=== PATIENT | female | born 1980 | race Caucasian/White ===

== ENCOUNTER 2021-10-04 18:46 | Emergency (ER) | payer OTHER ==
[~2021-10-04] VITALS: Ht 152.4 cm; Wt 59.0 kg
[2021-10-04 18:48] VITALS: BP 140/68
--- NOTE | 2021-10-04 19:42 | RAD ---
CT LUMBAR SPINE WO History:Reason: Lower back pain / Spl. Instructions: / History: Technique: Noncontrast CT was performed of the lumbar spine. Multiplanar reconstructions were perform ed. Exposure: One or more of the following individualized dose reduction techniques were utilized for thi s examination: 1. Automated exposure control 2. Adjustment of the mA and/or kV according to patient size 3. Use of iterative reconstruction technique. Comparison: None Findings: Transitional lumbosacral anatomy. Lumbarization of S1. L5-S1 disc space identified on axial series 2 image 55. Normal vertebral body height and alignment. No acute fracture. 6 lumbar type vertebral bodi es. T12-L1: No canal or neuroforaminal narrowing. L1-L2: Minimal disc bulge. No canal or neuroforaminal narrowing. L2-L3: Minimal disc bulge. No canal or neuroforaminal narrowing. L3-L4: Minimal disc bulge. No canal or neuroforaminal narrowing. L4-L5: Small disc bulge. No canal or neuroforaminal narrowing. L5-S1: Small disc bulge. Mild facet arthropathy. No canal or neuroforaminal narrowing. S1-S2 no canal or neuroforaminal narrowing. Mild atheromatous plaque within the aorta advanced for age. Punctate nonobstructing left intrarenal c alculus. Impression: 1. Transitional lumbosacral anatomy. 2. Mild lumbar spondylosis. 3. Punctate nonobstructing left intrarenal calculus. Electronically signed by: Sudhir Leonard DO (10/04/2021 7:40 PM) [facility]
--- NOTE | 2021-10-04 19:43 | PHYS DOC ---
General Adult EDM: Chief Complaint: BACK PAIN OR INJURY HPI: HPI: Patient is a 41-year-old female who presents to the emergency department for bilateral low back pain that started 2 weeks ago that has been intermittent. Patient reports that she has been moving and it has worsened over the last couple of days. Patient rates pain 7 out of 10. It does radiate into her buttock. She has been taking ibuprofen and muscle relaxers at home without relief. She denies any loss of bowel or bladder, wounds, injury or saddle anesthesias. She does report a bulge on the left lower back. (NICKY VILLA APRN) Review of Systems: Review of Systems: GI: See HPI : See HPI Musculoskeletal: See HPI Neurologic: See HPI (NICKY VILLA APRN) Current Medications: Current Meds: Current Medications Medications (Trade) Dose Ordered Sig/Adis Start Time Stop Time Status Last Admin Dose Admin Ketorolac Tromethamine (Toradol Im) 60 mg 1X ONCE 10/04/21 19:30 10/04/21 19:31 UNV Orphenadrine Citrate (Norflex) 60 mg 1X ONCE 10/04/21 19:30 10/04/21 19:31 UNV (NICKY VILLA APRN) Physical Exam: PE: Constitutional: Well developed, well nourished, no acute distress, non-toxic appearance. [] HENT: Normocephalic, atraumatic, bilateral external ears normal, oropharynx moist, no oral exudates, nose normal. [] Eyes: PERRL EOMI, conjunctiva normal, no discharge. [] Neck: Normal range of motion, no bony spinal tenderness, supple, no stridor. [] Cardiovascular:Heart rate regular rhythm, no murmur [] Lungs & Thorax: Bilateral breath sounds clear to auscultation [] Abdomen: Bowel sounds normal, soft, no tenderness, no masses, no pulsatile masses. [] Skin: Warm, dry, no erythema, no rash. [] Back: No bony spinal tenderness, bilateral paraspinal lumbar tenderness with palpation, small area of swelling to the left lower back likely a muscle spasm Extremities: No tenderness, no cyanosis, no clubbing, ROM intact, no edema. [] Neurologic: Alert and oriented X 3, normal motor function, normal sensory function, no focal deficits noted. [] Psychologic: Affect normal, judgement normal, mood normal. [] (NICKY VILLA APRN) EKG: EKG: [] (NICKY VILLA APRN) Radiology/Procedures: Radiology/Procedures: []PROCEDURE: CT LUMBAR SPINE WO CONTRAST CT LUMBAR SPINE WO History:Reason: Lower back pain / Spl. Instructions: / History: Technique: Noncontrast CT was performed of the lumbar spine. Multiplanar reconstructions were performed. Exposure: One or more of the following individualized dose reduction techniques were utilized for this examination: 1. Automated exposure control 2. Adjustment of the mA and/or kV according to patient size 3. Use of iterative reconstruction technique. Comparison: None Findings: Transitional lumbosacral anatomy. Lumbarization of S1. L5-S1 disc space identified on axial series 2 image 55. Normal vertebral body height and alignment. No acute fracture. 6 lumbar type vertebral bodies. T12-L1: No canal or neuroforaminal narrowing. L1-L2: Minimal disc bulge. No canal or neuroforaminal narrowing. L2-L3: Minimal disc bulge. No canal or neuroforaminal narrowing. L3-L4: Minimal disc bulge. No canal or neuroforaminal narrowing. L4-L5: Small disc bulge. No canal or neuroforaminal narrowing. L5-S1: Small disc bulge. Mild facet arthropathy. No canal or neuroforaminal narrowing. S1-S2 no canal or neuroforaminal narrowing. Mild atheromatous plaque within the aorta advanced for age. Punctate nonobstructing left intrarenal calculus. Impression: 1. Transitional lumbosacral anatomy. 2. Mild lumbar spondylosis. 3. Punctate nonobstructing left intrarenal calculus. Electronically signed by: Sudhir Cunningham DO (10/04/2021 7:40 PM) [facility] DICTATED AND SIGNED BY: SUDHIR CUNNINGHAM DO DATE: 10/04/211932 CC: NICKY VILLA APRN; PCP,NO ~MTH0 0 (NICKY VILLA APRN) Heart Score: C/O Chest Pain: N/A Risk Factors: Risk Factors: DM, Current or recent (<one month) smoker, HTN, HLP, family history of CAD, obesity. Risk Scores: Score 0 - 3: 2.5% MACE over next 6 weeks - Discharge Home Score 4 - 6: 20.3% MACE over next 6 weeks - Admit for Clinical Observation Score 7 - 10: 72.7% MACE over next 6 weeks - Early Invasive Strategies (NICKY VILLA APRN) Course & Med Decision Making: Course & Med Decision Making Pertinent Labs and Imaging studies reviewed. (See chart for details) [] Patient seen for back pain that radiates into his buttock patient denies any injury but reports she has been moving recently. She denies any cauda equina symptoms. UA performed to rule out an infection. CT scan of lumbar spine showed no acute findings with some spondylosis. Patient treated with anti- inflammatory and muscle relaxer injection. Patient's urinalysis did not show any infection. Patient CT scan of her lumbar spine did show some spondylosis and a punctate intrarenal nonobstructing stone on the left side. Patient will be discharged home with pain medication. She is advised to increase her fluids. She will also be discharged home with muscle relaxers and steroid dose pack. It is also possible that patient's back pain is due to the kidney stone. The stone is nonobstructing. Patient symptoms with radiation to her buttocks after heavy lifting during moving does sound more like sciatic symptoms. Patient will be referred to urology at [facility]. I discussed with patient all findings and diagnostic testing as well as the need to follow-up with PCP for further evaluation and treatment or return to the ER if any new or worsening symptoms. Strict return precautions were also discussed at length. Patient voiced understanding and agreement with the plan. Patient is hemodynamically stable at the time of disposition. (NICKY VILLA APRN) Dragon Disclaimer: Drageduardo Disclaimer: This electronic medical record was generated, in whole or in part, using a voice recognition dictation system. (NICKY VILLA APRN) Departure Departure: Impression: Primary Impression: Sciatica Qualified Codes: M54.31 - Sciatica, right side; M54.32 - Sciatica, left side Additional Impression: Kidney stone Disposition: HOME / SELF CARE / HOMELESS Condition: GOOD Referrals: PCPEMANUEL (PCP) Patient Instructions: Kidney Stones, Sciatica Additional Instructions: You were seen in the emergency department today for back pain. Your symptoms of your back pain that radiate down your buttock after moving is very consistent with sciatica. Sciatica is treated with anti-inflammatory medications and muscle relaxers. Please take the steroid dose pack for inflammation. For severe pain you are being discharged home with hydrocodone and Tylenol in combination tablet. Do not take any additional Tylenol with this medication. This medication may cause sedation so do not take the need to be alert, driving a vehicle or with alcohol. You are also being discharged home with a muscle relaxer which may also cause sedation, caution taking both of these medications at the same time. I would reserve the hydrocodone and Tylenol for severe pain. The CT scan of your back showed some arthritic changes and you do have a left very small kidney stone that is not obstructing. This could also be a cause for your back pain. Please make sure that you increase your fluids at home. Please monitor your urine for any passage of the stone. Please follow-up with your primary care provider on Tuesday. If your pain continues, you may need to see a urologist as it is possible that the kidney stone may be coming lodged and cause an obstruction. You can follow-up with [facility] urology group by calling [phone]. Please return to the emergency department if you develop worsening of your back pain, inability to walk, loss of bowel or bladder, numbness or tingling in your groin or down your legs, urinary symptoms, high fevers, intractable nausea or vomiting, blood in your urine. Scripts Methylprednisolone (MEDROL) 4 Mg Tab.ds.pk 1 PKG PO UD for inflammation, #1 PKG 0 Refills Prov: NICKY VILLA APRN 10/04/21 Hydrocodone Bit/Acetaminophen (HYDROCODONE-APAP 5-325 ) 1 Each Tablet 1 TAB PO PRN Q6HRS PRN for PAIN for 2 Days, #8 TAB 0 Refills Prov: NICKY VILLA APRN 10/04/21 Cyclobenzaprine Hcl (CYCLOBENZAPRINE HCL) 5 Mg Tablet 1 TAB PO TID for muscle spasm for 7 Days, #21 TAB 0 Refills Prov: NICKY VILLA APRN 10/04/21 Attending Signature Attending Signature I have participated in the care of this patient and I have reviewed and agree with all pertinent clinical information above including history, exam, and recommendations. (EMELIA DENNIS MD) NICKY VILLA APRN Oct 04, 2021 19:42 EMELIA DENNIS MD Oct 08, 2021 18:50
[2021-10-04] MEDS ORDERED: ORPHENADRINE CITRATE 60 MG/2 ML VIAL. IM ONE (20:30)
[2021-10-04] MEDS ORDERED: HYDROcodone/APAP 5/325MG 1 TAB TABLET PO ONE (20:30)
[2021-10-04] MEDS ORDERED: KETOROLAC 60 MG/2 ML VIAL. IM ONE (20:30)
[2021-10-04 20:54] LABS: BILIRUBIN,URINE NEG (NEG); CLARITY,URINE CLEAR; COLOR,URINE YELLOW; GLUCOSE,URINE NEG (NEG); NITRITE,URINE NEG (NEG); UROBILINOGEN,URINE 0.2 mg/dL (0.2 mg/dL)
[2021-10-04 20:55] LABS: BACTERIA,URINE 0 /HPF (0-FEW); RBC,URINE 0 /HPF (0-2); SQUAMOUS EPITHELIAL CELL,UR FEW /LPF; WBC,URINE 0 /HPF (0-4)
[2021-10-04] MEDS ORDERED: CYCL5TAB PO (21:11)
[2021-10-04] MEDS ORDERED: HYDR-2155 PO (21:11)
[2021-10-04] MEDS ORDERED: METH4TAB2 PO (21:20)
== END 2021-10-04 21:50 | disposition home or self-care (01) ==
LOC: ER 18:46
DX: M54.41 Lumbago with sciatica, right side (principal); M54.42 Lumbago with sciatica, left side; N20.0 Calculus of kidney
CPT/HCPCS: 72131; 81001; 96372; 99284; J1885; J2360